=== PATIENT | male | born 1965 | race African-American/Black ===

== ENCOUNTER 2017-06-14 14:00 | Emergency (ER) | payer SELFPAY ==
[2017-06-14] MEDS ORDERED: FOLIC ACID 5 MG/1 ML ONE (14:30)
[2017-06-14] MEDS ORDERED: MVI, ADULT NO.1 WITH VIT K 10 ML VIAL IV ONE (14:30)
[2017-06-14] MEDS ORDERED: THIAMINE HCL 100 MG/ML 2ML VIAL ONE (14:30)
[2017-06-14] MEDS ORDERED: 0.9 % SODIUM CHLORIDE 1,000 ML IV ONE ×2 (14:30→14:44)
[2017-06-14 14:34] LABS: BASOPHILS % 0.7 (0.0-1.5); EOSINOPHILS % 6.1 % (0.0-6.8); MEAN CORPUSCULAR HEMOGLOBIN 31.6 pg (28.0-34.0); MEAN CORPUSCULAR VOLUME 90.7 fl (80.0-100.0); MONOCYTES % 4.7 % (0.0-11.0); NEUTROPHILS # 4.1 # k/uL (1.4-7.7)
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
[2017-06-14 14:53] LABS: eGFR (African) > 60; eGFR (Non-African) > 60
[2017-06-14] MEDS ORDERED: POTASSIUM CHLORIDE 20 MEQ TABLET.ER PO ONE (14:55)
[2017-06-14] MEDS ORDERED: POTASSIUM CHLORIDE 20 MEQ TABLET.ER ONE (14:57)
[2017-06-14] MEDS ORDERED: THIAMINE HCL 100 MG, MVI, ADULT NO.1 WITH VIT K 10 ML, FOLIC ACID 5 MG in 0.9 % SODIUM ... IV SCH ×4 (15:00)
[2017-06-14 16:27] VITALS: BP 174/81
[2017-06-15 06:16] LABS: CANNABINOIDS NEGATIVE ng/mL (< 50); METHYLENEDIOXYMETHAMPHETAMINE NEGATIVE ng/mL (<500)
[2017-06-15 06:17] LABS: APPEARANCE,URINE CLEAR (CLEAR); COLOR,URINE YELLOW (YELLOW)
[2017-06-15 06:18] LABS: OCCULT BLOOD,URINE 1+ (NEGATIVE); UROBILINOGEN URINE 0.2 Eu (0.2-1.0)
== END 2017-06-14 16:25 | disposition short-term general hospital (02) ==
LOC: ED 14:00
DX: F10.129 Alcohol abuse with intoxication, unspecified (principal)
CPT/HCPCS: 80053; 80320; 80377; 81002; 85025; 96365; 96366; 99283; 99284; A9270; J3411; J3490; J7030; G0480; G0481; S1016